=== PATIENT | female | born 1955 | race Caucasian/White ===

== ENCOUNTER → 2025-06-21 11:01 | Outpatient (REF) | payer MEDICARE, BC, SELFPAY ==
[2025-06-21 11:40] LABS: Hematocrit 45.3 % (37.0-47.0); Hemoglobin 15.2 g/dL (12.0-16.0); Mean Corp Hgb Conc. 33.6 g/dL (33.0-37.0); Mean Corpuscular Volume 86.8 fL (81.0-99.0); Nucleated Red Blood Cells % 0 %; Platelet Count 274 10^3/uL (130-400); Red Cell Dist. Width 12.8 % (11.5-14.5)
[2025-06-21 12:39] LABS: ALT (SGPT) 22 U/L (0-35); AST (SGOT) 22 U/L (14-36); Albumin 4.8 g/dl (3.5-5.0); Alkaline Phosphatase 84 U/L (38-126); Blood Urea Nitrogen 15 mg/dl (7-17); Calcium 9.7 mg/dl (8.4-10.2); Carbon Dioxide 27 mmol/L (22-30); Chloride 105 mmol/L (98-107); Glucose 103 mg/dl (70-99); Magnesium 2.0 mg/dl (1.6-2.3); Potassium 4.2 mmol/L (3.5-5.1); Sodium 141 mmol/L (135-145); Total Protein 7.6 g/dl (6.3-8.2); eGFR > 60.00
== END ==
LOC: SDSPAT 11:01
PROVIDERS: ATTENDING PHYSICIAN Internal Medicine Cardiovascular Disease; FAMILY PHYSICIAN Internal Medicine; OTHER PHYSICIAN Internal Medicine Cardiovascular Disease
DX: I47.10 Supraventricular tachycardia, unspecified (principal)
CPT/HCPCS: 36415; 80053; 83735; 85025; 93005

== ENCOUNTER 2025-07-17 10:20 | Day surgery (SDC) | payer MEDICARE, BC, SELFPAY ==
[2025-06-21 11:13] VITALS: BMI 25.9
--- NOTE | 2025-06-21 13:55 | HPS.HSE ---
Family Physician
-
Family Physician: NO INTERVIEW UNKNOWN
Chief Complaint
-
Supraventricular tachycardia.
History of Present Illness
The patient is a 69 year old female presenting today for supraventricular tachycardia. She was initially diagnosed with this arrhythmia 24 years ago. She has had it infrequently and intermittently over the years and has been able to manage
episodes by avoiding triggers and trying to relax herself. These episodes can be triggered in certain positions, specifically when she bends over or leans over. Stressful situations also trigger this episodes, such as dehydration or fasting. She has
been on Diltiazem for many years; however, her episodes are now increasing in frequency. She has also had several prolonged episodes over the past year. Symptoms during these episodes include shortness of breath, palpitations, and lightheadedness.
She, unfortunately, can not tolerate an increased dose of Diltiazem due to the side effect of constipation. She is interested in pursuing SVT ablation for more definitive arrhythmia management. She denies any current complaints today such as chest
pain, shortness of breath at rest, nausea, vomiting, diarrhea, cough, sore throat, or fever.
Medical History
Past Medical History
Past Medical History: Reports Other
Additional Past Medical History:
1. Supraventricular tachycardia, pharmacological therapy with Diltiazem.
2. Hypertension.
3. Hyperlipidemia.
4. Diverticulosis.
5. Hemorrhoids.
6. Arthralgia.
7. Stenosing tenosynovitis of left long finger.
8. Osteopenia.
Past Surgical History: Reports Other
Additional Past Surgical History:
1. Hysterectomy.
2. Bilateral trigger finger release.
3. Colonoscopy x2.
Social History
Tobacco: Non-smoker
Alcohol: Other (She, on average, drinks 1 glass of wine monthly. )
Personal:
Living: Other (She lives in a 2 story home with her spouse. Her home has a first floor main setup. She lives in a [place] community. )
Family History
Family History: Not pertinent
Allergies / Home Medications
Allergy/Medication List:
Home medications:
1. Acetaminophen 1000 mg p.o. every 6 hours as needed.
2. Atorvastatin 20 mg p.o. at bedtime.
3. Diltiazem 120 mg p.o. at bedtime.
4. Multivitamin 1 tablet p.o. daily.
Allergies: Seasonal.
Review of Systems
-
A 12 point ROS was completed and negative except as noted: Yes
Physical Exam
Vital Signs
Blood pressure 154/91. Heart rate 79. Respirations 18. Pulse ox 98% on room air.
Height 5 feet, 5.5 inches. Weight 71.5 kg. BMI 25.8.
Physical Exam
General: Well Developed, Well Nourished and No Apparent Distress
HEENT: NormoCephalic, Moist mucous membranes, Atraumatic and PERRLA
Respiratory: Clear
Cardiac: Regular Rhythm
GI: Soft, Non Tender and Non Distended
Musculoskeletal: No Edema and Normal Gait & Station
Skin: Warm and Dry
Neuro: AO x 3 and Nonfocal/grossly intact
Laboratory Results
-
DIAGNOSTIC STUDIES as of 06/21/2025: White blood cell count 7.2. Hemoglobin 15.2. Platelet count 274,000. Sodium 141. Potassium 4.2. BUN 15. Creatinine 0.7. Glucose 103. Calcium 9.7. Magnesium 2.0. AST 22. ALT 22. Albumin 4.8.
EKG 06/21/2025: Normal sinus rhythm. Poor R wave progression. Nonspecific ST abnormality.
Echocardiogram 04/19/2025: Ejection fraction is 60% with grade 1 diastolic dysfunction. No significant valvular disease is detected.
Impression/Plan
-
IMPRESSION/PLAN:
1. Supraventricular tachycardia: The patient is in need of an SVT ablation with Dr. Rigo Grewal on 07/17/2025. The benefits and risks of the procedure have been explained to the patient. The patient understands these risks and wishes to proceed.
She has been advised to hold her Diltiazem 5 days prior to her procedure. She will not take any medications the morning of the ablation.
[2025-07-17] VITALS (9 sets, daily range): BP systolic 112–138; BP diastolic 70–97; BMI 25.9
--- NOTE | 2025-07-17 14:55 | ITS.CL.ABL ---
Clinical Dietician - Ablation
Ablation
Procedure Report:
ELECTROPHYSIOLOGY ABLATION REPORT
Date of Procedure: July 17, 2025
Referring: Dr. Sohan giron
INDICATION: Narrow complex supraventricular tachycardia which is symptomatic and refractory to diltiazem
HISTORY: As above
PROCEDURE:
Baseline intracardiac measurements were obtained in sinus rhythm.��HRA, HIS, RVA and CS catheters were placed. 3D mapping with the [employer] mapping system was utilized.
Atrial decremental extrastimuli were delivered from the HRA and the CS.��Single and double extrastimuli as well as burst pacing were performed from both atrial and ventricular sites..��Atrial and AVN antegrade ERP�s were determined.��Antegrade as
well as retrograde AVN [place] CL�s were determined.
Under ultrasound guidance right femoral venous and left femoral venous access was performed.
MEASUREMENTS:
BASELINE
A-A:�800 ms
P-P:���800 ms
A-H:�88 ms
H-V����50 ms
P-R:���142 ms
QRS:�80 ms
QT:����380 ms
SNRT: Normal at 600 ms
AVN Wenckebach: 380 ms pre and post procedure
AVN Fast Pathway ERP: 600�380 ms
AVN Slow Pathway ERP: 600�350 ms after ablation there was no evidence of slow pathway conduction
HIS-Purkinje System: Normal; no distal block
Retrograde Conduction Decremental, Retrograde Block 380 ms
RVA ERP: 310 ms/600ms���
Evidence for typical AV Chyna Reentry as the tachycardia diagnosis included: (1)��An concentric atrial activation sequence during SVT with earliest atrial activation located at the fast pathway position along the decapolar CS catheter, (2)
ventricular pacing from the RVA showed earliest retrograde atrila activation at the fast pathway position along the decapolar CS catheter, matching that seen during SVT, (3) Atrial activation during SVT began within the first 10 ms of the QRS
complex, (4) Initiation of SVT was dependent on a critical AH interval (slow pathway engagement), (5) Ventricular pacing at a CL 20-30 ms faster than the SVT CL during the SVT demonstrated advancement of the atrial electrogram to the pacing CL and
when
pacing was terminated, a V-A-V pattern with continuation of SVT was observed practically excluding AT as the SCT mechanism
SVT was initiated by atrial extrastimuli
SVT could be terminated by ventricular and atrial burst pacing
The SVT cycle length was 500 ms.; SVT was well-tolerated hemodynamically.
Radiofrequency Catheter Ablation:
Following determination of the SVT mechanism we upgraded the 8 Fijian short sheath
The 10 Fijian steerable sheath was utilized for ablation of the slow pathway.
A deflectable tip mapping/ablation catheter was placed through the sheath and maneuvered onto the slow pathway position for ablation.
RF applications were delivered during ventricular pacing using a temperature controlled system.��RF application resulted in nearly immediate (4 seconds) junctional beats at a 1-4 AV ratio and septal to the RV apical catheter in SWEDISH projection.��A 4
mm tip RF catheter was used with the maximum power��set to 50 W and the maximum temperature set to 52�degrees C.
After a 20 minute waiting period, stimulation was repeated.��Midline retrograde activation was preserved during RV apical stimulation.
No sustained SVT was induced, a marked contrast to the pre-ablation situation. There was also no evidence for slow pathway conduction post ablation and slow pathway modification
COMPLICATIONS: None
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
RECOMMENDATIONS:
1. Discontinue Cardizem in 1 month
2. Out of bed in 3 to 4 hours consider same-day discharge
== END 2025-07-17 19:00 | disposition home or self-care (01) ==
LOC: CATH 10:20
PROVIDERS: ATTENDING PHYSICIAN Internal Medicine Cardiovascular Disease; FAMILY PHYSICIAN Internal Medicine; OTHER PHYSICIAN Internal Medicine Cardiovascular Disease
DX: I47.10 Supraventricular tachycardia, unspecified (principal); I10 Essential (primary) hypertension; E78.5 Hyperlipidemia, unspecified; Z87.19 Personal history of other diseases of the digestive system; K57.90 Diverticulosis of intestine, part unspecified, without perforation or abscess without bleeding; M25.50 Pain in unspecified joint; M85.80 Other specified disorders of bone density and structure, unspecified site; M65.942 Unspecified synovitis and tenosynovitis, left hand; Z79.899 Other long term (current) drug therapy; Z90.710 Acquired absence of both cervix and uterus
CPT/HCPCS: C1730; C1766; C1733; C1894; 93005; 93653